=== PATIENT | male | born 2000 | race Hispanic/Latino ===

== ENCOUNTER 2019-01-22 11:34 | Emergency (ER) | payer OTHER ==
[~2019-01-22] VITALS: Ht 175.3 cm; Wt 114.3 kg
[2019-01-22 11:35] VITALS: BP 145/92
[2019-01-22] MEDS ORDERED: SERO400T PO (11:50)
--- NOTE | 2019-01-22 12:55 | REP ---
CT cervical spine without contrast HISTORY: Trauma COMPARISON: None There is no acute fracture or subluxation. There is no disc bulge or herniation. The spinal canal and neural foramina are patent. The intervertebral discs and vertebral bodies are normal in height. IMPRESSION: There is no acute fracture or subluxation. Electronically Signed by Brenden Lomas MD 01/22/2019 12:47 P
--- NOTE | 2019-01-22 14:34 | REP ---
Thoracic spine series: Three views. History: Trauma. Findings: AP and lateral views of the thoracic spine show preserved vertebral body heights and normal alignment. Paravertebral soft tissues are not swollen. Pedicles and posterior elements are intact. No fracture or collapse is seen. Impression: Negative radiographs of the thoracic spine. Electronically Signed by Joshua Niño MD 01/22/2019 02:26 P
[2019-01-22] MEDS ORDERED: NAPR-837 PO (14:43)
== END 2019-01-22 15:00 | disposition home or self-care (01) ==
LOC: M ED 11:34
DX: G89.29 Other chronic pain (principal); M54.2 Cervicalgia; M62.838 Other muscle spasm

== ENCOUNTER 2020-05-05 13:05 | Emergency (ER) | payer OTHER, BC ==
[~2020-05-05] VITALS: Ht 170.2 cm; Wt 112.4 kg
[2020-05-05 13:05] VITALS: BP 158/79
[~2020-05-05 13:05] MED LIST: NAPR-837 PO; SERO400T PO
[2020-05-05] MEDS ORDERED: AUGMENTIN 875 MG TAB PO ONE (14:00)
[2020-05-05 14:18] LABS: BASO # 0.1 10^3/uL (0.0-0.2); BASO % 0.9 % (0.0-1.0); EOS # 0.1 10^3/uL (0.0-0.5); EOS % 1.5 % (0.0-3.0); HEMATOCRIT 47.3 % (42.0-52.0); LYMPH # 3.5 10^3/uL (1.5-5.0); LYMPH % 36.1 % (24.0-44.0); MEAN CORPUSCULAR HEMOGLOBIN 28.1 pg (27.0-33.0); MEAN CORPUSCULAR HGB CONC 31.7 g/dl (32.0-36.5); MEAN CORPUSCULAR VOLUME 88.6 fl (80.0-96.0); MONO # 0.7 10^3/uL (0.0-0.8); MONO % 7.2 % (0.0-5.0); NEUTROPHILS # 5.2 10^3/uL (1.5-8.5); NEUTROPHILS % 53.8 % (36.0-66.0); PLATELET COUNT, AUTOMATED 314 10^3/uL (150-450); RED BLOOD COUNT 5.34 10^6/uL (4.30-6.10); WHITE BLOOD COUNT 9.6 10^3/uL (4.0-10.0)
[2020-05-05] MEDS ORDERED: SERO400T PO (14:41)
[2020-05-05] MEDS ORDERED: AUGM875T28 PO (14:43)
[2020-05-05 14:47] LABS: ALBUMIN 4.2 GM/DL (3.2-5.2); ALT/SGPT 39 U/L (12-78); BILIRUBIN,TOTAL 0.4 MG/DL (0.2-1.0); BLOOD UREA NITROGEN 13 MG/DL (7-18); CALCIUM LEVEL 9.3 MG/DL (8.5-10.1); CARBON DIOXIDE LEVEL 28 MEQ/L (21-32); CHLORIDE LEVEL 108 MEQ/L (98-107); CREATININE FOR GFR 0.98 MG/DL (0.70-1.30); GLUCOSE, FASTING 99 MG/DL (70-100); POTASSIUM SERUM 4.1 MEQ/L (3.5-5.1); SODIUM LEVEL 140 MEQ/L (136-145); TOTAL PROTEIN 8.1 GM/DL (6.4-8.2)
[2020-05-05 14:56] LABS: HEPATITIS B SURFACE ANTIBODY NEGATIVE (POSITIVE)
[2020-05-05 15:06] LABS: HEPATITIS B SURFACE ANTIGEN NEGATIVE (NEGATIVE)
[2020-05-05 15:36] LABS: HEPATITIS C VIRUS ABY INDEX 0.2 INDEX (<0.8); HIV SCREEN CENTAUR EXPOSED NEGATIVE (NEGATIVE)
== END 2020-05-05 14:49 | disposition home or self-care (01) ==
LOC: M ED 13:05
DX: Z76.0 Encounter for issue of repeat prescription (principal); S41.052A Open bite of left shoulder, initial encounter; Y99.0 Civilian activity done for income or pay; Y92.9 Unspecified place or not applicable; Y93.9 Activity, unspecified

== ENCOUNTER → 2022-01-25 | Outpatient (REF) | payer BC ==
[~2022-01-25] MED LIST changes: +AUGM875T28 PO
== END ==
LOC: M LAB REF 14:10
PROVIDERS: ATTEND Internal Medicine
DX: J02.9 Acute pharyngitis, unspecified (principal)

== ENCOUNTER → 2023-09-12 | Outpatient (REF) | LOC: M EMP 15:56 | PROVIDERS: ATTEND Family Medicine | DX: Z11.52 Encounter for screening for COVID-19 (principal) ==

== ENCOUNTER → 2023-09-13 | Outpatient (REF) | LOC: M EMP 09:58 | PROVIDERS: ATTEND Family Medicine | DX: Z11.52 Encounter for screening for COVID-19 (principal) ==

== ENCOUNTER → 2024-08-13 | Outpatient (REF) | LOC: M EMP 12:26 | PROVIDERS: ATTEND Family Medicine | DX: Z11.52 Encounter for screening for COVID-19 (principal) ==

== ENCOUNTER 2024-08-17 18:43 | Inpatient (IN) | payer BC, SELFPAY ==
[~2024-08-17] VITALS: Ht 172.7 cm; Wt 113.6 kg
[2024-08-17 19:18] LABS: HEMATOCRIT 44.8 % (42.0-52.0); HEMOGLOBIN 14.2 g/dl (13.5-17.5); MEAN CORPUSCULAR HEMOGLOBIN 27.9 pg (27.0-33.0); MEAN CORPUSCULAR HGB CONC 31.7 g/dl (32.0-36.5); PLATELET COUNT, AUTOMATED 374 10^3/uL (150-450); RED BLOOD COUNT 5.09 10^6/uL (4.30-6.10); WHITE BLOOD COUNT 14.4 10^3/uL (4.0-10.0)
[2024-08-17] MEDS ORDERED: HOME MED LIST COMPLETE! XX SCH (19:20)
[2024-08-17 19:37] LABS: AMPHETAMINES LEVEL URINE NEGATIVE (NEGATIVE)
[2024-08-17 19:38] LABS: BARBITURATES URINE NEGATIVE (NEGATIVE); BENZODIAZEPINES URINE NEGATIVE (NEGATIVE); CANNABINOIDS URINE NEGATIVE (NEGATIVE); COCAINE METABOLITE URINE NEGATIVE (NEGATIVE); METHADONE URINE NEGATIVE (NEGATIVE); OPIATES URINE NEGATIVE (NEGATIVE); PHENCYCLIDINE URINE NEGATIVE (NEGATIVE)
[2024-08-17 19:40] LABS: ETHYL ALCOHOL (ETHANOL) < 0.003 % (0.000-0.010)
[2024-08-17 19:42] LABS: ALBUMIN 4.2 G/DL (3.2-5.2); ALKALINE PHOSPHATASE 80 U/L (40-129); ALT/SGPT 60 U/L (7.0-40); AST/SGOT 34 U/L (<34); BILIRUBIN,DIRECT 0.1 MG/DL (<0.4); BILIRUBIN,TOTAL 0.3 MG/DL (0.3-1.2); BLOOD UREA NITROGEN 13 MG/DL (9-23); CARBON DIOXIDE LEVEL 27 MMOL/L (20-31); CHLORIDE LEVEL 104 MMOL/L (98-107); CREATININE FOR GFR 0.93 MG/DL (0.70-1.30); GLOMERULAR FILTRATION RATE > 60.0 (>60); GLUCOSE, FASTING 90 MG/DL (60-100); POTASSIUM SERUM 3.9 MMOL/L (3.5-5.1); SALICYLATE LEVEL < 3.0 MG/DL (<30); SODIUM LEVEL 141 MMOL/L (136-145); TOTAL PROTEIN 8.3 G/DL (5.7-8.2)
[2024-08-17 19:44] LABS: THYROID STIMULATING HORMONE 2.611 uIU/ML (0.55-4.78)
[2024-08-17] MEDS ORDERED: MAALOX 30 ML SUSP *UDC PO PRN (23:10)
[2024-08-17] MEDS ORDERED: diphenhydrAMINE 25MG CAP PO PRN (23:10)
[2024-08-17] MEDS ORDERED: MOM 30ML SUSPENSION UDC PO PRN (23:10)
[2024-08-17] MEDS ORDERED: traZODone 50 MG TAB PO PRN (23:10)
[2024-08-18 00:44] VITALS: BP 144/92; TEMP 97.1; O2SAT 100
[2024-08-18 06:21] VITALS: BP 140/65; TEMP 97.3; O2SAT 97
[2024-08-18] MEDS: PARoxetine 10MG TABLET PO SCH (09:28)
[2024-08-18 16:16] VITALS: BP 127/84; TEMP 98.8; O2SAT 99
[2024-08-18] MEDS: MIRTAZAPINE 7.5MG PER 1/2 TABLET PO SCH (20:39)
[2024-08-18] MEDS: TAMSULOSIN 0.4 MG CAP PO SCH (20:39)
[2024-08-19 07:06] VITALS: BP 137/56; TEMP 97.1; O2SAT 100
[2024-08-19] MEDS: IBUPROFEN 400MG TAB PO PRN (12:24)
[2024-08-19 16:07] VITALS: BP 143/78; TEMP 97.8; O2SAT 98
[2024-08-20 06:51] VITALS: BP 146/75; TEMP 97.5; O2SAT 100
[2024-08-20] MEDS ORDERED: PARO5TAB PO (10:43)
[2024-08-20] MEDS ORDERED: MIRT-10 PO (10:43)
[2024-08-20] MEDS: ACETAMINOPHEN 325 MG TAB PO PRN (10:50)
== END 2024-08-20 12:38 | disposition home or self-care (01) | DRG 753 ==
LOC: M ED 18:43 → M ED INP 23:10 → M PSY 08-18 00:14
PROVIDERS: ADMIT Psychiatry & Neurology Neurology; ATTEND Psychiatry & Neurology Neurology
DX: F31.9 Bipolar disorder, unspecified (principal); R45.851 Suicidal ideations; E78.5 Hyperlipidemia, unspecified

== ENCOUNTER 2024-09-29 09:17 | Emergency (ER) | payer OTHER, BC ==
[~2024-09-29] VITALS: Ht 175.3 cm; Wt 120.9 kg
[~2024-09-29 09:17] MED LIST changes: +MIRT-10 PO; +PARO5TAB PO
[2024-09-29] MEDS ORDERED: PARO10TA3 PO (11:23)
[2024-09-29] MEDS ORDERED: MIRT1TAB PO (11:23)
[2024-09-29] MEDS ORDERED: HOME MED LIST COMPLETE! XX SCH (11:30)
[2024-09-29] MEDS: ACETAMINOPHEN 325 MG TAB PO ONE (11:47)
[2024-09-29 11:48] VITALS: BP 132/76; TEMP 98.5; O2SAT 99
== END 2024-09-29 11:53 | disposition home or self-care (01) ==
LOC: M ED 09:17
DX: S00.93XA Contusion of unspecified part of head, initial encounter (principal); W00.0XXA Fall on same level due to ice and snow, initial encounter; J45.909 Unspecified asthma, uncomplicated; F31.9 Bipolar disorder, unspecified; Z79.899 Other long term (current) drug therapy; Z91.013 Allergy to seafood; Y92.009 Unspecified place in unspecified non-institutional (private) residence as the place of occurrence of the external cause; Y93.89 Activity, other specified; Y99.9 Unspecified external cause status

== ENCOUNTER 2025-03-14 17:05 | Inpatient (IN) | payer BC ==
[~2025-03-14] VITALS: Ht 170.2 cm; Wt 113.3 kg
[~2025-03-14 17:05] MED LIST changes: +MIRT1TAB PO; +PARO10TA3 PO; +SULF1TAB23 PO
[2025-03-14 17:48] LABS: PLATELET COUNT, AUTOMATED 313 10^3/uL (150-450)
[2025-03-14 18:07] LABS: AMPHETAMINES LEVEL URINE NEGATIVE (NEGATIVE); BARBITURATES URINE NEGATIVE (NEGATIVE); BENZODIAZEPINES URINE NEGATIVE (NEGATIVE)
[2025-03-14 18:08] LABS: COCAINE METABOLITE URINE NEGATIVE (NEGATIVE); METHADONE URINE NEGATIVE (NEGATIVE); OPIATES URINE NEGATIVE (NEGATIVE); PHENCYCLIDINE URINE NEGATIVE (NEGATIVE)
[2025-03-14 18:10] LABS: CANNABINOIDS URINE POSITIVE (NEGATIVE); ETHYL ALCOHOL (ETHANOL) < 0.003 % (0.000-0.010)
[2025-03-14 18:11] LABS: SALICYLATE LEVEL < 3.0 MG/DL (<30)
[2025-03-14 18:12] LABS: ALT/SGPT 28 U/L (7.0-40); AST/SGOT 21 U/L (<34); CALCIUM LEVEL 9.9 MG/DL (8.5-10.1); CARBON DIOXIDE LEVEL 24 MMOL/L (20-31); CHLORIDE LEVEL 106 MMOL/L (98-107); CREATININE FOR GFR 0.91 MG/DL (0.70-1.30); GLOMERULAR FILTRATION RATE > 90.0 (>60); POTASSIUM SERUM 3.7 MMOL/L (3.5-5.1); SODIUM LEVEL 142 MMOL/L (136-145)
[2025-03-14] MEDS ORDERED: HYDR50TA70 PO (20:51)
[2025-03-14] MEDS ORDERED: RA M10TA PO (20:51)
[2025-03-14] MEDS ORDERED: HOME MED LIST COMPLETE! XX SCH (20:55)
[2025-03-15] MEDS: NICOTINE 14 MG/24 HR TRANSDERMAL TD SCH (09:00)
[2025-03-15] MEDS ORDERED: OLANZapine 5 MG TAB PO PRN (14:35)
[2025-03-15] MEDS ORDERED: traZODone 50 MG TAB PO PRN (14:35)
[2025-03-15] MEDS ORDERED: IBUPROFEN 400 MG TAB PO PRN (14:35)
[2025-03-15] MEDS ORDERED: MAALOX 30 ML SUSP *UDC PO PRN (14:35)
[2025-03-15] MEDS ORDERED: LORazepam 1 MG TAB PO PRN (14:35)
[2025-03-15] MEDS ORDERED: MOM 30 ML SUSPENSION UDC PO PRN (14:35)
[2025-03-15] MEDS ORDERED: ACETAMINOPHEN 325 MG TAB PO PRN (14:35)
[2025-03-15] MEDS ORDERED: HALOPERIDOL 5 MG TAB PO PRN (14:35)
[2025-03-16] MEDS: NICOTINE 14 MG/24 HR TRANSDERMAL TD SCH (09:00)
[2025-03-16] MEDS ORDERED: OLANZapine 5 MG TAB PO PRN (09:50)
[2025-03-16] MEDS ORDERED: OLANZapine ORAL DISINTEGRATING TAB 5MG PO PRN (09:50)
[2025-03-16] MEDS ORDERED: MOM 30 ML SUSPENSION UDC PO PRN (09:50)
[2025-03-16 11:50] VITALS: BP 138/89; TEMP 98.1; O2SAT 99
[2025-03-16] MEDS: IBUPROFEN 400 MG TAB PO PRN (12:03)
[2025-03-16] MEDS: LORazepam 1 MG TAB PO PRN (14:47)
[2025-03-16] MEDS: traZODone 50 MG TAB PO PRN (20:08)
[2025-03-17 06:16] VITALS: BP 144/82; TEMP 97.6; O2SAT 98
[2025-03-17] MEDS ORDERED: ALBUTEROL 90 MCG/ACT 8 GM HFA INHALER INH PRN (16:20)
[2025-03-17] MEDS: LURASIDONE HCL 40 MG TAB PO SCH (18:05)
[2025-03-18 08:21] LABS: CHOLESTEROL LEVEL 155.0 MG/DL (<200); CHOLESTEROL RISK RATIO 5.01 (<5); LDL CHOLESTEROL 101.1 MG/DL (<100); NON-HDL-C 124.1 MG/DL; TRIGLYCERIDES LEVEL 115.0 MG/DL (<150)
[2025-03-18] MEDS: ACETAMINOPHEN 325 MG TAB PO PRN (08:43)
[2025-03-18 11:13] VITALS: BP 144/82; TEMP 97.6; O2SAT 98
[2025-03-18 15:31] VITALS: BP 143/69; TEMP 97.9; O2SAT 99
[2025-03-19 06:57] VITALS: BP 155/97; TEMP 97.7; O2SAT 100
[2025-03-19 15:17] VITALS: BP 142/77; TEMP 98.2; O2SAT 98
[2025-03-19] MEDS: traZODone 100 MG TAB PO PRN (20:13)
[2025-03-20 06:51] VITALS: BP 134/71; TEMP 98.1; O2SAT 98
[2025-03-20 15:09] VITALS: BP 146/85; TEMP 97.9; O2SAT 98
[2025-03-20] MEDS: HALOPERIDOL 5 MG TAB PO PRN (18:50)
[2025-03-21 06:55] VITALS: BP 132/63; TEMP 97.8; O2SAT 98
[2025-03-21 15:47] VITALS: BP 142/90; TEMP 97.6; O2SAT 100
[2025-03-22 06:47] VITALS: BP 126/62; TEMP 97.7; O2SAT 99
[2025-03-22] MEDS: MAALOX 30 ML SUSP *UDC PO PRN (12:52)
[2025-03-22] MEDS: OLANZapine ORAL DISINTEGRATING TAB 5MG PO PRN (15:27)
[2025-03-22 16:21] VITALS: BP 139/85; TEMP 97.4; O2SAT 98
[2025-03-22] MEDS: lamoTRIgine 25 MG TAB PO SCH (17:29)
[2025-03-22] MEDS: LURASIDONE HCL 20 MG TAB PO SCH (17:30)
[2025-03-23 06:28] VITALS: BP 150/90; TEMP 97.9; O2SAT 98
[2025-03-23 15:18] VITALS: BP 142/87; TEMP 98; O2SAT 99
[2025-03-23] MEDS: lamoTRIgine 25 MG TAB PO SCH (20:11)
[2025-03-24 06:30] VITALS: BP 140/90; TEMP 98.9; O2SAT 100
[2025-03-24] MEDS ORDERED: LATU20TA PO (08:37)
[2025-03-24] MEDS ORDERED: VENTAER INH (08:37)
[2025-03-24] MEDS ORDERED: OLANZapine DISINTEGRATING PO (08:37)
[2025-03-24] MEDS ORDERED: LAMI25TA PO (08:37)
[2025-03-24] MEDS ORDERED: OLAN10TA12 PO (12:23)
[2025-03-24] MEDS ORDERED: LATU1TAB PO (14:03)
== END 2025-03-24 12:30 | disposition home or self-care (01) | DRG 753 ==
LOC: M ED 17:05 → M ED INP 03-15 14:35 → UNDOADMIN 03-15 14:35 → M ED INP 03-16 09:49 → M PSY 03-16 11:06
PROVIDERS: ADMIT Internal Medicine; ATTEND Internal Medicine
DX: F31.81 Bipolar II disorder (principal); R45.851 Suicidal ideations; Z91.013 Allergy to seafood; J45.909 Unspecified asthma, uncomplicated; D72.829 Elevated white blood cell count, unspecified